=== PATIENT | female | born 1960 | race American Indian/Alaskan Native ===

== ENCOUNTER 2017-09-04 12:23 | Inpatient (IN) | payer BC ==
[2017-09-04] MEDS ORDERED: PROVENTIL IH ONE ×4 (12:29→15:48)
[2017-09-04] MEDS ORDERED: MAGNESIUM SULFATE 2GM/50ML 2 GM/50 ML BAG IV ONE ×2 (12:42→12:43)
[2017-09-04] MEDS ORDERED: ADRENALIN IM ONE (12:43)
[2017-09-04] MEDS ORDERED: NACL 0.9% 1000 ML 1,000 ML IV ONE ×2 (12:43→12:46)
[2017-09-04] MEDS ORDERED: LIDOCAINE VISCOUS 2% PO ONE (12:46)
[2017-09-04] MEDS ORDERED: LIDOCAINE VISCOUS 2% ONE (12:47)
[2017-09-04] MEDS ORDERED: BENADRYL IV ONE (12:48)
[2017-09-04] MEDS ORDERED: GUAIFENESIN DM SYRUP PO ONE (12:49)
[2017-09-04] MEDS ORDERED: PHENERGAN/CODEINE 6.25-10 MG/5ML PO ONE (13:30)
[2017-09-04] MEDS ORDERED: SUBLIMAZE IV ONE ×2 (13:34→18:26)
[2017-09-04] MEDS ORDERED: ATIVAN IV ONE (13:35)
[2017-09-04] MEDS ORDERED: SUBLIMAZE ONE ×2 (13:38→18:45)
[2017-09-04 13:46] LABS: Basophils % (Auto) 0.3 % (0.0-1.8); Eosinophils # (Auto) 0.3 K/mm3 (0.0-0.4); Eosinophils % (Auto) 3.8 % (0.0-4.3); Hematocrit 38.6 % (30.3-42.9); Hemoglobin 13.1 gm/dl (10.1-14.3); Lymphocytes # (Auto) 2.8 K/mm3 (1.2-5.4); Lymphocytes % (Auto) 39.3 % (13.4-35.0); Mean Corpuscular HGB Conc 34 % (30-34); Mean Corpuscular Hemoglobin 27 pg (28-32); Mean Corpuscular Volume 78 fl (79-97); Monocytes # (Auto) 0.7 K/mm3 (0.0-0.8); Monocytes % (Auto) 9.1 % (0.0-7.3); Platelet Count 266 K/mm3 (140-440); Red Blood Count 4.92 M/mm3 (3.65-5.03); Red Cell Distribution Width 14.5 % (13.2-15.2)
[2017-09-04 14:01] LABS: BUN/Creatinine Ratio 15; Blood Urea Nitrogen 9 mg/dL (7-17); Calcium 9.1 mg/dL (8.4-10.2); Hemolysis Index 4
--- NOTE | 2017-09-04 14:28 | XRay Report ---
AP CHEST: HISTORY: chest pain AP view of the chest demonstrates a normal mediastinal and cardiac contour with clear lungs and normal bony and soft tissue structures. Thoracic neurostimulator terminates at T9 level. IMPRESSION: Unremarkable AP chest.
[2017-09-04] MEDS ORDERED: BABY ASPIRIN PO ONE (15:50)
--- NOTE | 2017-09-04 15:50 | Emergency Department Report ---
HPI - General Chief Complaint: Dyspnea/Respdistress Time Seen by Provider: 09/04/17 12:42 - HPI HPI: The patient is a 56-year-old female who presents for evaluation of dyspnea. The patient has a history of severe asthma and previous intubations 5. The patient reports 6 days of cough and waxing and waning dyspnea, worsened and severe since this morning, constant, exacerbated with coughing or exertion, improved with sitting up at rest. She says that she has also experienced a cough and severe generalized myalgias. The patient denies fever, trauma to the chest, syncope, hemoptysis, unilateral leg swelling, recent immobilization, history of DVT or PE, hx of recent cancer. ED Past Medical Hx - Past Medical History Hx Asthma: Yes - Surgical History Additional Surgical History: back, neck, tonsilectomy - Social History Smoking Status: Never Smoker Substance Use Type: None ED Review of Systems ROS: Stated complaint: JOANA Other details as noted in HPI Constitutional: denies: fever ENT: denies: throat or neck pain Respiratory: denies: cough reports shortness of breath Cardiovascular: reports chest pain Endocrine: denies unexplained weight loss or gain Gastrointestinal: denies: abdominal pain, nausea Genitourinary: denies: dysuria Musculoskeletal: denies: leg swelling Skin: denies: rash Neurological: denies: headache Hematological/Lymphatic: denies: easy bleeding or easy bruising Psych: denies sadness or hopelessness Physical Exam - Physical Exam Vital Signs: Vital Signs 09/04/17 09/04/17 09/04/17 12:28 12:34 12:56 Temperature 98.3 F Pulse Rate 78 Pulse Rate [ 94 H 90 Posterior Bilateral Throughout] Respiratory 26 H Rate Respiratory 24 24 Rate [Posterior Bilateral Throughout] Blood Pressure 177/101 O2 Sat by Pulse 97 Oximetry 09/04/17 09/04/17 13:12 13:49 Temperature Pulse Rate Pulse Rate [ 86 Posterior Bilateral Throughout] Respiratory 22 Rate Respiratory 26 H Rate [Posterior Bilateral Throughout] Blood Pressure 144/80 O2 Sat by Pulse Oximetry Physical Exam: General: well-nourished, well-developed, no acute distress Head: Normocephalic, atraumatic Eyes: normal sclera ENT: Mucous membranes are pale and dry Neck: trachea midline, neck supple, No neck stiffness, no cervical adenopathy Respiratory: Diminished breath sounds and wheezing present throughout lung step[place] bilaterally, positive costal retractions, patient in moderate respiratory distress Cardio: S1 and S2 present, no murmurs, rubs, gallops, capillary refill is delayed Abdomen: Normoactive bowel sounds, soft abdomen, no rigidity, no guarding or rebound tenderness Musc: No pitting edema Skin: No rash Neuro: no facial drooping, normal speech Psych: Normal affect ED Course Vital Signs 09/04/17 09/04/17 09/04/17 12:28 12:34 12:56 Temperature 98.3 F Pulse Rate 78 Pulse Rate [ 94 H 90 Posterior Bilateral Throughout] Respiratory 26 H Rate Respiratory 24 24 Rate [Posterior Bilateral Throughout] Blood Pressure 177/101 O2 Sat by Pulse 97 Oximetry 09/04/17 09/04/17 13:12 13:49 Temperature Pulse Rate Pulse Rate [ 86 Posterior Bilateral Throughout] Respiratory 22 Rate Respiratory 26 H Rate [Posterior Bilateral Throughout] Blood Pressure 144/80 O2 Sat by Pulse Oximetry ED Medical Decision Making - Lab Data Result diagrams: 09/04/17 13:29 09/04/17 13:29 - Medical Decision Making The patient was seen and examined by myself. The patient is placed on a cardiac rehabilitation specialist and continuous pulse ox. On initial evaluation, the patient was found to be in respiratory distress. Evaluation orders were placed and the patient was started on continuous albuterol nebulizer. The patient was also given IV Solu-Medrol and IV magnesium for treatment of her severe asthma. The patient was given pain medicine and cough medicine as well. EKG is grossly unremarkable. X-ray of the chest is negative for pneumonia, pleural effusion, pneumothorax, or other signs of emergent disease process. Lab results are grossly not concerning. The patient was reevaluated and found to remain with dyspnea, increased work of breathing, and wheezing throughout lung stephens. Evaluation findings are consistent with status asthmaticus. The patient is given additional breathing treatments and will be admitted to the hospital. The on-call hospitalist service was contacted. They agreed to admit the patient for further treatment and close monitoring. The ED admit order was placed. The patient was admitted in guarded condition. Critical care attestation.: If time is entered above; I have spent that time in minutes in the direct care of this critically ill patient, excluding procedure time. ED Disposition Clinical Impression: Acute severe exacerbation of asthma, Respiratory distress, acute, Myalgia Disposition: OP ADMIT IP TO THIS HOSP Is pt being admited?: Yes Does the pt Need Aspirin: Yes Condition: Fair Referrals: ANJEL MOLINA MD [Primary Care Provider] - 3-5 Days Time of Disposition: 13:31
[2017-09-04] MEDS ORDERED: TESSALON PERLES PO ONE (18:26)
[2017-09-04] MEDS ORDERED: LEVAQUIN PO ONE (18:26)
[2017-09-04] MEDS ORDERED: MUCINEX ER PO ONE (18:27)
[2017-09-04] MEDS ORDERED: SODIUM CHLORIDE FLUSH SYRINGE 10 ML IV PRN (20:09)
[2017-09-04] MEDS ORDERED: MORPHINE IV PRN (20:09)
[2017-09-04] MEDS ORDERED: ZOFRAN IV PRN (20:09)
[2017-09-04] MEDS ORDERED: TYLENOL PO PRN (20:09)
--- NOTE | 2017-09-04 20:09 | History and Physical Report ---
History of Present Illness Date of examination: 09/04/17 Date of admission: 09/04/17 15:47 Chief complaint: Chief complaint: Increasing shortness of breath and wheezing for a few days History of present illness: VIVIANA: 56-year-old female with history of asthma and previous intubations 5 comes in for cough off 6 days duration. Cough or return regarding sputum. Exacerbated by exertion. No fever no chills. Patient has 5 intubations in the past. No recent travel. Patient has severe allergies. Patient feels that the allergies have precipitated the asthma attack. No history of pulmonary embolism or DVT. What was stated in the emergency room recently and discharged. No response to outpatient treatment. No chest pain or palpitations. Past Medical History Hx Asthma: Yes Surgical History Additional Surgical History: back, neck, tonsilectomy -Social History Smoking Status: Never Smoker Substance Use Type: None Family history: Hypertension Review of Systems ROS: Stated complaint: JOANA Other details as noted in HPI Constitutional: denies: fever ENT: denies: throat or neck pain Respiratory: denies: cough reports shortness of breath Cardiovascular: reports chest pain Endocrine: denies unexplained weight loss or gain Gastrointestinal: denies: abdominal pain, nausea Genitourinary: denies: dysuria Musculoskeletal: denies: leg swelling Skin: denies: rash Neurological: denies: headache Hematological/Lymphatic: denies: easy bleeding or easy bruising Psych: denies sadness or hopelessness Medications and Allergies Allergies Allergy/AdvReac Type Severity Reaction Status Date / Time dexamethasone [From Decadron] Allergy Itching Verified 09/04/17 12:28 peanut AdvReac Anaphylaxis Verified 09/04/17 12:28 Exam - Physical Exam Narrative exam: Lying in bed in mild distress - Constitutional Vitals: Temp Pulse Resp BP Pulse Ox 98.3 F 95 H 15 151/76 100 09/04/17 19:21 09/04/17 19:21 09/04/17 19:21 09/04/17 18:30 09/04/17 19:21 General appearance: Present: mild distress, well-nourished - EENT Eyes: Present: PERRL ENT: hearing intact, clear oral mucosa - Neck Neck: Present: supple, normal ROM - Respiratory Respiratory effort: normal Respiratory: bilateral: diminished, rhonchi, wheezing - Cardiovascular Heart rate: 80 Rhythm: regular Heart Sounds: Present: S1 & S2. Absent: rub, click - Extremities Extremities: no ischemia, pulses intact, pulses symmetrical, No edema Peripheral Pulses: within normal limits - Abdominal General gastrointestinal: Present: soft, non-tender, non-distended, normal bowel sounds Female genitourinary: Present: normal - Rectal Rectal Exam: deferred - Integumentary Integumentary: Present: clear, warm, dry - Musculoskeletal Musculoskeletal: gait normal, strength equal bilaterally - Psychiatric Psychiatric: appropriate mood/affect, intact judgment & insight - Neurologic Neurologic: CNII-XII intact, moves all extremities - Allied Health Allied health notes reviewed: nursing, case management Results - Labs CBC & Chem 7: 09/04/17 13:29 09/04/17 13:29 Labs: Laboratory Last Values WBC 7.2 K/mm3 (4.5-11.0) 09/04/17 13:29 RBC 4.92 M/mm3 (3.65-5.03) 09/04/17 13:29 Hgb 13.1 gm/dl (10.1-14.3) 09/04/17 13:29 Hct 38.6 % (30.3-42.9) 09/04/17 13:29 MCV 78 fl (79-97) L 09/04/17 13:29 MCH 27 pg (28-32) L 09/04/17 13:29 MCHC 34 % (30-34) 09/04/17 13:29 RDW 14.5 % (13.2-15.2) 09/04/17 13:29 Plt Count 266 K/mm3 (140-440) 09/04/17 13:29 Lymph % (Auto) 39.3 % (13.4-35.0) H 09/04/17 13:29 [place] % (Auto) 9.1 % (0.0-7.3) H 09/04/17 13:29 Eos % (Auto) 3.8 % (0.0-4.3) 09/04/17 13:29 Baso % (Auto) 0.3 % (0.0-1.8) 09/04/17 13:29 Lymph # 2.8 K/mm3 (1.2-5.4) 09/04/17 13:29 [place] # 0.7 K/mm3 (0.0-0.8) 09/04/17 13:29 Eos # 0.3 K/mm3 (0.0-0.4) 09/04/17 13:29 Baso # 0.0 K/mm3 (0.0-0.1) 09/04/17 13:29 Seg Neutrophils % 47.5 % (40.0-70.0) 09/04/17 13:29 Seg Neutrophils # 3.4 K/mm3 (1.8-7.7) 09/04/17 13:29 POC ABG pH 7.564 (7.35-7.45) H 09/04/17 13:23 POC ABG pCO2 25.4 (35-45) L 09/04/17 13:23 POC ABG pO2 115 (80-105) H 09/04/17 13:23 POC ABG HCO3 22.9 09/04/17 13:23 POC ABG Total CO2 24 09/04/17 13:23 POC ABG O2 Sat 99 09/04/17 13:23 POC ABG Base Excess 1 09/04/17 13:23 FiO2 28 % 09/04/17 13:23 Sodium 142 mmol/L (137-145) 09/04/17 13:29 Potassium 3.5 mmol/L (3.6-5.0) L 09/04/17 13:29 Chloride 104.2 mmol/L (98-107) 09/04/17 13:29 Carbon Dioxide 23 mmol/L (22-30) 09/04/17 13:29 Anion Gap 18 mmol/L 09/04/17 13:29 BUN 9 mg/dL (7-17) 09/04/17 13:29 Creatinine 0.6 mg/dL (0.7-1.2) L 09/04/17 13:29 Estimated GFR > 60 ml/min 09/04/17 13:29 BUN/Creatinine Ratio 15 % 09/04/17 13:29 Glucose 116 mg/dL (65-100) H 09/04/17 13:29 Calcium 9.1 mg/dL (8.4-10.2) 09/04/17 13:29 NT-Pro-B Natriuret Pep 43.22 pg/mL (0-900) 09/04/17 13:29 Short CBC 09/04/17 Range/Units 13:29 WBC 7.2 (4.5-11.0) K/mm3 Hgb 13.1 (10.1-14.3) gm/dl Hct 38.6 (30.3-42.9) % Plt Count 266 (140-440) K/mm3 [facility] 09/04/17 13:29 Sodium 142 Potassium 3.5 L Chloride 104.2 Carbon Dioxide 23 BUN 9 Creatinine 0.6 L Glucose 116 H Calcium 9.1 - Imaging and Cardiology Imaging and Cardiology: Chest x-ray: HISTORY: chest pain AP view of the chest demonstrates a normal mediastinal and cardiac contour with clear lungs and normal bony and soft tissue structures. Thoracic neurostimulator terminates at T9 level. IMPRESSION: Unremarkable AP chest. Assessment and Plan Advance Directives: Yes (full code) VTE prophylaxis?: Chemical Plan of care discussed with patient/family: Yes - Patient Problems (1) Acute respiratory failure Current Visit: Yes Status: Acute Qualifiers: Respiratory failure complication: hypoxia Qualified Code(s): J96.01 - Acute respiratory failure with hypoxia Plan to address problem: Patient severely tachypneic with a respiratory rate of 34. Patient to get Xopenex and DuoNeb's IV Solu-Medrol and IV Levaquin. Patient to be intubated if necessary. (2) Acute severe exacerbation of asthma Current Visit: Yes Status: Acute Plan to address problem: Patient Kirk on Xopenex IV Solu-Medrol and IV Levaquin. Intubation if necessary .Also use BiPAP if necessary. (3) DVT prophylaxis Current Visit: Yes Status: Acute Plan to address problem: Heparin subcutaneously 5000 every 12 GI prophylaxis with famotidine
[2017-09-04] MEDS ORDERED: XOPENEX IH PRN (20:15)
[2017-09-04] MEDS ORDERED: DUONEB *Not for PRN Use IH (20:16)
[2017-09-04] MEDS ORDERED: K-DUR PO ONE (20:33)
[2017-09-04] MEDS ORDERED: K-DUR PO NR (23:00)
[2017-09-04] MEDS ORDERED: BENADRYL IV NR ×2 (23:14→23:45)
[2017-09-04] MEDS: PEPCID PO SCH (23:44)
[2017-09-04] MEDS: HEPARIN SUB-Q SCH (23:47)
[2017-09-04] MEDS: LEVAQUIN 750MG/150ML 750 MG/150 ML BAG IV SCH (23:48)
[2017-09-04] MEDS: D5NS 1,000 ML IV SCH (23:49)
[2017-09-04] MEDS: SODIUM CHLORIDE FLUSH SYRINGE 10 ML IV SCH (23:51)
[2017-09-05] MEDS: PERCOCET 5/325 PO PRN ×3 (00:50→20:18)
[2017-09-05] MEDS: ROBITUSSIN PO PRN ×3 (03:19→20:18)
[2017-09-05] MEDS ORDERED: BENADRYL IV SCH (06:00)
[2017-09-05 06:56] LABS: Hematocrit 36.2 % (30.3-42.9); Hemoglobin 12.1 gm/dl (10.1-14.3); Mean Corpuscular HGB Conc 33 % (30-34); Mean Corpuscular Hemoglobin 26 pg (28-32); Mean Corpuscular Volume 79 fl (79-97); Platelet Count 278 K/mm3 (140-440); Red Blood Count 4.61 M/mm3 (3.65-5.03); Red Cell Distribution Width 14.3 % (13.2-15.2)
[2017-09-05 07:26] LABS: Alanine Aminotransferase 14 units/L (7-56); Albumin 3.9 g/dL (3.9-5); BUN/Creatinine Ratio 17; Blood Urea Nitrogen 10 mg/dL (7-17); Calcium 9.1 mg/dL (8.4-10.2); Hemolysis Index 12
[2017-09-05 08:13] LABS: Band Neutrophils # (Manual) 0.1 K/mm3; Basophils % (Manual) 0 % (0.0-1.8); Eosinophils % (Manual) 0 % (0.0-4.3); RBC Morphology Normal; Total Cells Counted 100
[2017-09-05] MEDS: LEVAQUIN 750MG/150ML 750 MG/150 ML BAG IV SCH (10:02)
[2017-09-05] MEDS: PEPCID PO SCH (10:03)
[2017-09-05] MEDS: HEPARIN SUB-Q SCH ×2 (10:03→21:39)
[2017-09-05] MEDS: SODIUM CHLORIDE FLUSH SYRINGE 10 ML IV SCH ×2 (10:29→23:30)
--- NOTE | 2017-09-05 12:37 | Consultation ---
History of Present Illness Consult date: 09/05/17 Requesting physician: NUSRAT SCHREIBER Reason for consult: dyspnea History of present illness: 56 yo with asthma followed by Dr. Hernandez, admitted w/ increasing SOB, wheezing, cough with yellow sputum. No hemoptysis, fevers, chills. Has chest soreness due to coughing. Has GERD. Has post-nasal drip. Active Medications Acetaminophen (Tylenol) 650 mg PO Q4H PRN PRN Reason: Pain MILD(1-3)/Fever >100.5/TURNER Diphenhydramine HCl (Benadryl) 25 mg IV Q8H KEEGAN Last Admin: 09/05/17 06:49 Dose: 25 mg Fluticasone Propionate (Flonase) 200 mcg NS QDAY KEEGAN Guaifenesin (Robitussin) 200 mg PO Q4H PRN PRN Reason: Cough Last Admin: 09/05/17 10:07 Dose: 200 mg Heparin Sodium (Porcine) (Heparin) 5,000 unit SUB-Q Q12HR KEEGAN Last Admin: 09/05/17 10:03 Dose: 5,000 unit Dextrose/Sodium Chloride (D5ns) 1,000 mls @ 75 mls/hr IV DIRECT KEEGAN Last Admin: 09/04/17 23:49 Dose: 75 mls/hr Levofloxacin/Dextrose (Levaquin 750mg/150ml) 750 mg in 150 mls @ 100 mls/hr IV Q24HR KEEGAN; Protocol Last Admin: 09/05/17 10:02 Dose: 100 mls/hr Levalbuterol HCl (Xopenex) 1.25 mg IH Q8HRT PRN PRN Reason: Shortness Of Breath Methylprednisolone Sodium Succinate (Solu-Medrol) 60 mg IV Q8HR KEEGAN Last Admin: 09/05/17 06:49 Dose: 60 mg Morphine Sulfate (Morphine) 2 mg IV Q4H PRN PRN Reason: Pain, Moderate (4-6) Ondansetron HCl (Zofran) 4 mg IV Q8H PRN PRN Reason: Nausea And Vomiting Last Admin: 09/05/17 05:51 Dose: 4 mg Oxycodone/Acetaminophen (Percocet 5/325) 1 tab PO Q6H PRN PRN Reason: Pain, Moderate (4-6) Last Admin: 09/05/17 10:07 Dose: 1 tab Pantoprazole Sodium (Protonix) 40 mg PO QDAY KEEGAN Sodium Chloride (Sodium Chloride Flush Syringe 10 Ml) 10 ml IV BID KEEGAN Last Admin: 09/04/17 23:51 Dose: 10 ml Sodium Chloride (Sodium Chloride Flush Syringe 10 Ml) 10 ml IV PRN PRN PRN Reason: LINE FLUSH Stop: 09/05/17 20:08 Past History Past Medical History: other (Asthma, GERD, Allergic rhinitis) Social history: lives with family. denies: smoking, alcohol abuse, prescription drug abuse, IV drug use Family history: other (no pulm issues reported) Medications and Allergies Allergies Allergy/AdvReac Type Severity Reaction Status Date / Time dexamethasone [From Decadron] Allergy Itching Verified 09/04/17 12:28 peanut AdvReac Anaphylaxis Verified 09/04/17 12:28 Active Meds: Active Medications Acetaminophen (Tylenol) 650 mg PO Q4H PRN PRN Reason: Pain MILD(1-3)/Fever >100.5/TURNER Diphenhydramine HCl (Benadryl) 25 mg IV Q8H [facility] Last Admin: 09/05/17 06:49 Dose: 25 mg Fluticasone Propionate (Flonase) 200 mcg NS QDAY KEEGAN Guaifenesin (Robitussin) 200 mg PO Q4H PRN PRN Reason: Cough Last Admin: 09/05/17 10:07 Dose: 200 mg Heparin Sodium (Porcine) (Heparin) 5,000 unit SUB-Q Q12HR KEEGAN Last Admin: 09/05/17 10:03 Dose: 5,000 unit Dextrose/Sodium Chloride (D5ns) 1,000 mls @ 75 mls/hr IV DIRECT KEEGAN Last Admin: 09/04/17 23:49 Dose: 75 mls/hr Levofloxacin/Dextrose (Levaquin 750mg/150ml) 750 mg in 150 mls @ 100 mls/hr IV Q24HR [facility]; Protocol Last Admin: 09/05/17 10:02 Dose: 100 mls/hr Levalbuterol HCl (Xopenex) 1.25 mg IH Q8HRT PRN PRN Reason: Shortness Of Breath Methylprednisolone Sodium Succinate (Solu-Medrol) 60 mg IV Q8HR [facility] Last Admin: 09/05/17 06:49 Dose: 60 mg Morphine Sulfate (Morphine) 2 mg IV Q4H PRN PRN Reason: Pain, Moderate (4-6) Ondansetron HCl (Zofran) 4 mg IV Q8H PRN PRN Reason: Nausea And Vomiting Last Admin: 09/05/17 05:51 Dose: 4 mg Oxycodone/Acetaminophen (Percocet 5/325) 1 tab PO Q6H PRN PRN Reason: Pain, Moderate (4-6) Last Admin: 09/05/17 10:07 Dose: 1 tab Pantoprazole Sodium (Protonix) 40 mg PO QDAY KEEGAN Sodium Chloride (Sodium Chloride Flush Syringe 10 Ml) 10 ml IV BID KEEGAN Last Admin: 09/04/17 23:51 Dose: 10 ml Sodium Chloride (Sodium Chloride Flush Syringe 10 Ml) 10 ml IV PRN PRN PRN Reason: LINE FLUSH Stop: 09/05/17 20:08 Review of Systems All systems: negative Physical Examination Vital signs: Vital Signs Temp Pulse Resp BP Pulse Ox 98.3 F 78 26 H 177/101 97 09/04/17 12:28 09/04/17 12:28 09/04/17 12:28 09/04/17 12:28 09/04/17 12:28 General appearance: no acute distress, alert Eyes: non-icteric ENT: oropharynx moist Neck: supple, no lymphadenopathy Effort: normal Ascultation: Bilateral: other (bronchospastic coughing bilaterally) Cardiovascular: regular rate and rhythm (no mrg) Gastrointestinal: normoactive bowel sounds, soft, non-tender, non-distended Integumentary: normal Extremities: no cyanosis, no edema, pink and warm Musculoskeletal: no deformities normal mental status, non-focal exam, pupils equal and round, CN II-XII normal mood appropriate, affect normal Results - Laboratory Findings CBC and BMP: 09/05/17 06:32 09/05/17 06:32 ABG POC ABG pH 7.564 (7.35-7.45) H 09/04/17 13:23 POC ABG pCO2 25.4 (35-45) L 09/04/17 13:23 POC ABG pO2 115 (80-105) H 09/04/17 13:23 POC ABG HCO3 22.9 09/04/17 13:23 POC ABG Total CO2 24 09/04/17 13:23 POC ABG O2 Sat 99 09/04/17 13:23 Abnormal lab findings: Abnormal Labs 09/04/17 09/04/17 09/04/17 13:23 13:29 13:29 MCV 78 L MCH 27 L Lymph % (Auto) 39.3 H [place] % (Auto) 9.1 H Seg Neuts % (Manual) Lymphocytes % (Manual) Lymphocytes # (Manual) POC ABG pH 7.564 H POC ABG pCO2 25.4 L POC ABG pO2 115 H Potassium 3.5 L Creatinine 0.6 L Glucose 116 H 09/05/17 09/05/17 06:32 06:32 MCV MCH 26 L Lymph % (Auto) [place] % (Auto) Seg Neuts % (Manual) 90.0 H Lymphocytes % (Manual) 8.0 L Lymphocytes # (Manual) 0.7 L POC ABG pH POC ABG pCO2 POC ABG pO2 Potassium Creatinine 0.6 L Glucose 131 H - Diagnostic Findings Chest x-ray: report reviewed, image reviewed (clear lungs) Assessment and Plan Imp: 1. Acute bronchitis 2. Asthma exac. 3. Allergic rhinitis/post-nasal drip 4. GERD Rec: 1. Solumedrol, Levaquin 2. Flonase/Benadryl 3. PPI daily 4. Monitor clinical response Plan of care reviewed with patient, she understands/agrees Thanks for the consult. Will follow.
[2017-09-05] MEDS: PROTONIX PO SCH (13:10)
[2017-09-05] MEDS ORDERED: PHENERGAN PO PRN (13:23)
--- NOTE | 2017-09-05 13:25 | Progress Note ---
Assessment and Plan Brief history: Radiological test: Hospitalist Physical exam: GENERAL: well-developed and well-nourished lying on bed appeared to be in no discomfort. HEENT: Normocephalic. Atraumatic. No conjunctival congestion or icterus. Patient has moist mucous membranes. NECK: Supple. Trachea midline. CHEST/LUNGS: Clear to auscultated bilaterally, breathing nonlabored. No wheezes crackles or rhonchi. HEART/CARDIOVASCULAR: Regular in rate and rhythm. S1 and S2 positive. ABDOMEN: Abdomen is soft, nontender. Patient has normal bowel sounds. SKIN: There is no rash. Warm and dry. NEURO: No focal motor deficit. Follows command. MUSCULOSKELETAL: No joint effusion or tenderness. EXTRIMITY: No edema, no cyanosis or clubbing. PSYCH: Cooperative. Subjective Date of service: 09/05/17 Interval history: Patient seen and examined. Medical records and medication list reviewed. No acute event overnight noted by the RN. Patient denies any chest pain or difficulty breathing. Patient is tolerating diet. Discussed plan of care at bedside with patient. Objective - Constitutional Vitals: Vital Signs - 12hr 09/05/17 09/05/17 09/05/17 01:33 04:46 07:41 Temperature 98.4 F 98.5 F Pulse Rate 85 72 Respiratory 18 18 16 Rate Respiratory Rate [Bilateral Soft Tissue] Blood Pressure 129/63 131/73 Blood Pressure [Left] O2 Sat by Pulse 95 97 Oximetry 09/05/17 09/05/17 09/05/17 10:00 10:07 11:53 Temperature 97.5 F L Pulse Rate 75 Respiratory 20 18 18 Rate Respiratory 18 Rate [Bilateral Soft Tissue] Blood Pressure Blood Pressure 144/78 [Left] O2 Sat by Pulse 95 95 Oximetry - Labs CBC & Chem 7: 09/05/17 06:32 09/05/17 06:32 Labs: Abnormal lab results 09/04/17 09/04/17 09/04/17 Range/Units 13:23 13:29 13:29 MCV 78 L (79-97) fl MCH 27 L (28-32) pg Lymph % (Auto) 39.3 H (13.4-35.0) % [place] % (Auto) 9.1 H (0.0-7.3) % Seg Neuts % (Manual) (40.0-70.0) % Lymphocytes % (Manual) (13.4-35.0) % Lymphocytes # (Manual) (1.2-5.4) K/mm3 POC ABG pH 7.564 H (7.35-7.45) POC ABG pCO2 25.4 L (35-45) POC ABG pO2 115 H (80-105) Potassium 3.5 L (3.6-5.0) mmol/L Creatinine 0.6 L (0.7-1.2) mg/dL Glucose 116 H (65-100) mg/dL 09/05/17 09/05/17 Range/Units 06:32 06:32 MCV (79-97) fl MCH 26 L (28-32) pg Lymph % (Auto) (13.4-35.0) % [place] % (Auto) (0.0-7.3) % Seg Neuts % (Manual) 90.0 H (40.0-70.0) % Lymphocytes % (Manual) 8.0 L (13.4-35.0) % Lymphocytes # (Manual) 0.7 L (1.2-5.4) K/mm3 POC ABG pH (7.35-7.45) POC ABG pCO2 (35-45) POC ABG pO2 (80-105) Potassium (3.6-5.0) mmol/L Creatinine 0.6 L (0.7-1.2) mg/dL Glucose 131 H (65-100) mg/dL
--- NOTE | 2017-09-05 15:27 | Progress Note ---
Assessment and Plan / Acute respiratory failure due to asthema exacerbation cont on Xopenex and DuoNeb's IV Solu-Medrol and IV Levaquin and BiPAP as needed /Acute severe exacerbation of asthma Patient started on Xopenex IV Solu-Medrol and IV Levaquin. will use BiPAP if necessary. /Acute bronchitis - cont abx /DVT prophylaxis Heparin subcutaneously 5000 every 12 /GI prophylaxis with famotidine Brief history: 56-year-old female with history of asthma and previous intubations 5 came in for cough for 6 days duration and SOB exacerbated by exertion. Radiological test: CXR - unremarkable Hospitalist Physical exam: GENERAL: well-developed and well-nourished female lying on bed appeared to be in no discomfort. HEENT: Normocephalic. Atraumatic. No conjunctival congestion or icterus. Patient has moist mucous membranes. NECK: Supple. Trachea midline. CHEST/LUNGS: breathing nonlabored.+ wheezes b/l. HEART/CARDIOVASCULAR: Regular in rate and rhythm. S1 and S2 positive. ABDOMEN: Abdomen is soft, nontender. Patient has normal bowel sounds. SKIN: There is no rash. Warm and dry. NEURO: No focal motor deficit. Follows command. MUSCULOSKELETAL: No joint effusion or tenderness. EXTRIMITY: No edema, no cyanosis or clubbing. PSYCH: Cooperative. Subjective Date of service: 09/05/17 Interval history: Patient seen and examined. Medical records and medication list reviewed. No acute event overnight noted by the RN. Patient denies any chest pain but c/o difficulty breathing and cough. Patient is tolerating diet. Discussed plan of care at bedside with patient. Objective - Constitutional Vitals: Vital Signs - 12hr 09/05/17 09/05/17 09/05/17 04:46 07:41 10:00 Temperature 98.4 F 98.5 F Pulse Rate 85 72 Respiratory 18 16 20 Rate Respiratory 18 Rate [Bilateral Soft Tissue] Blood Pressure 129/63 131/73 Blood Pressure [Left] O2 Sat by Pulse 95 97 95 Oximetry 09/05/17 09/05/17 09/05/17 10:07 11:53 14:23 Temperature 97.5 F L Pulse Rate 75 77 Respiratory 18 18 Rate Respiratory Rate [Bilateral Soft Tissue] Blood Pressure 134/71 Blood Pressure 144/78 [Left] O2 Sat by Pulse 95 96 Oximetry 09/05/17 14:28 Temperature 98.2 F Pulse Rate Respiratory 18 Rate Respiratory Rate [Bilateral Soft Tissue] Blood Pressure Blood Pressure [Left] O2 Sat by Pulse 96 Oximetry - Labs CBC & Chem 7: 09/05/17 06:32 09/05/17 06:32 Labs: Abnormal lab results 09/05/17 09/05/17 Range/Units 06:32 06:32 MCH 26 L (28-32) pg Seg Neuts % (Manual) 90.0 H (40.0-70.0) % Lymphocytes % (Manual) 8.0 L (13.4-35.0) % Lymphocytes # (Manual) 0.7 L (1.2-5.4) K/mm3 Creatinine 0.6 L (0.7-1.2) mg/dL Glucose 131 H (65-100) mg/dL
[2017-09-05] MEDS: FLONASE NS SCH (15:48)
[2017-09-05] MEDS: D5NS 1,000 ML IV SCH (18:02)
[2017-09-05] MEDS: MUCINEX ER PO SCH ×2 (18:04→21:38)
[2017-09-05] MEDS: BENADRYL PO PRN (21:38)
[2017-09-06] MEDS: BENADRYL PO PRN (06:03)
[2017-09-06] MEDS: ROBITUSSIN PO PRN (06:07)
[2017-09-06] MEDS: PROTONIX PO SCH (09:58)
[2017-09-06] MEDS: MUCINEX ER PO SCH (09:58)
[2017-09-06] MEDS: FLONASE NS SCH (09:59)
[2017-09-06] MEDS ORDERED: LEVAQUIN PO SCH (10:00)
[2017-09-06] MEDS: HEPARIN SUB-Q SCH (10:10)
--- NOTE | 2017-09-06 10:13 | Progress Note ---
Assessment and Plan Imp: 1. Acute bronchitis 2. Asthma exac. 3. Allergic rhinitis/post-nasal drip 4. GERD Rec: 1. Finish 7 days of Levaquin; recommend Prednisone 40mg x 3 days, 30mg x 3 days , 20mg x 3 days, 10mg x 3 days 2. Flonase/antihistamine 3. PPI daily 4. Cont. Advair 500/50 1 puff BID and needs Rx for rescue inhaler such as Ventolin HFA 5. Can go home pulm-drake and f/u with Dr. Henrandez in 1-2 weeks Plan of care reviewed with patient, she understands/agrees Subjective Date of service: 09/06/17 Principal diagnosis: Cough, Asthma Interval history: No events. Cough, SOB, and wheezing much improved. On RA. Wants to go home. Active Medications Acetaminophen (Tylenol) 650 mg PO Q4H PRN PRN Reason: Pain MILD(1-3)/Fever >100.5/TURNER Diphenhydramine HCl (Benadryl) 25 mg PO Q8H PRN PRN Reason: Itching Last Admin: 09/06/17 06:03 Dose: 25 mg Fluticasone Propionate (Flonase) 100 mcg NS QDAY [facility] Last Admin: 09/06/17 09:59 Dose: 100 mcg Guaifenesin (Robitussin) 200 mg PO Q4H PRN PRN Reason: Cough Last Admin: 09/06/17 06:07 Dose: 200 mg Guaifenesin (Mucinex Er) 600 mg PO BID [facility] Last Admin: 09/06/17 09:58 Dose: 600 mg Heparin Sodium (Porcine) (Heparin) 5,000 unit SUB-Q Q12HR [facility] Last Admin: 09/05/17 21:39 Dose: 5,000 unit Dextrose/Sodium Chloride (D5ns) 1,000 mls @ 75 mls/hr IV DIRECT [facility] Last Admin: 09/05/17 18:02 Dose: 75 mls/hr Levalbuterol HCl (Xopenex) 1.25 mg IH Q8HRT PRN PRN Reason: Shortness Of Breath Levofloxacin (Levaquin) 750 mg PO DAILY [facility] Last Admin: 09/06/17 09:58 Dose: 750 mg Methylprednisolone Sodium Succinate (Solu-Medrol) 60 mg IV Q8HR [facility] Last Admin: 09/06/17 06:03 Dose: 60 mg Morphine Sulfate (Morphine) 2 mg IV Q4H PRN PRN Reason: Pain, Moderate (4-6) Ondansetron HCl (Zofran) 4 mg IV Q8H PRN PRN Reason: Nausea And Vomiting Last Admin: 09/05/17 05:51 Dose: 4 mg Oxycodone/Acetaminophen (Percocet 5/325) 1 tab PO Q6H PRN PRN Reason: Pain, Moderate (4-6) Last Admin: 09/05/17 20:18 Dose: 1 tab Pantoprazole Sodium (Protonix) 40 mg PO QDAY [facility] Last Admin: 09/06/17 09:58 Dose: 40 mg Promethazine HCl (Phenergan) 12.5 mg PO Q6H PRN PRN Reason: Nausea And Vomiting Sodium Chloride (Sodium Chloride Flush Syringe 10 Ml) 10 ml IV BID [facility] Last Admin: 09/05/17 23:30 Dose: 10 ml Objective Vital Signs - 12hr 09/05/17 09/06/17 09/06/17 23:47 04:20 07:05 Temperature 97.7 F 98.3 F 98.2 F Pulse Rate 89 65 64 Respiratory 20 18 15 Rate Blood Pressure 157/102 122/58 126/65 O2 Sat by Pulse 97 97 96 Oximetry Constitutional: no acute distress, alert Eyes: non-icteric ENT: oropharynx moist Neck: supple, no lymphadenopathy Effort: normal Ascultation: Bilateral: clear Cardiovascular: regular rate and rhythm (no mrg) Gastrointestinal: normoactive bowel sounds, soft, non-tender, non-distended Integumentary: normal Extremities: no cyanosis, no edema, pink and warm Neurologic: normal mental status, non-focal exam, pupils equal and round, CN II- XII normal Psychiatric: mood appropriate, affect normal CBC and BMP: 09/05/17 06:32 09/05/17 06:32 ABG, PT/INR, D-dimer: ABG POC ABG pH 7.564 (7.35-7.45) H 09/04/17 13:23 POC ABG pCO2 25.4 (35-45) L 09/04/17 13:23 POC ABG pO2 115 (80-105) H 09/04/17 13:23 POC ABG HCO3 22.9 09/04/17 13:23 POC ABG Total CO2 24 09/04/17 13:23 POC ABG O2 Sat 99 09/04/17 13:23 Abnormal lab findings: Abnormal Labs 09/04/17 09/04/17 09/04/17 13:23 13:29 13:29 MCV 78 L MCH 27 L Lymph % (Auto) 39.3 H [place] % (Auto) 9.1 H Seg Neuts % (Manual) Lymphocytes % (Manual) Lymphocytes # (Manual) POC ABG pH 7.564 H POC ABG pCO2 25.4 L POC ABG pO2 115 H Potassium 3.5 L Creatinine 0.6 L Glucose 116 H 09/05/17 09/05/17 06:32 06:32 MCV MCH 26 L Lymph % (Auto) [place] % (Auto) Seg Neuts % (Manual) 90.0 H Lymphocytes % (Manual) 8.0 L Lymphocytes # (Manual) 0.7 L POC ABG pH POC ABG pCO2 POC ABG pO2 Potassium Creatinine 0.6 L Glucose 131 H Chest x-ray: report reviewed, image reviewed
[2017-09-06] MEDS: SODIUM CHLORIDE FLUSH SYRINGE 10 ML IV SCH (10:15)
--- NOTE | 2017-09-06 14:54 | Discharge Summary ---
Providers - Providers Date of Admission: 09/04/17 15:47 Date of discharge: 09/06/17 Attending physician: YUNG GREGG 09/04/17 Consult to Case Management [CONS] Routine Services Needed at Discharge: Home Health Services Notified:: copy given to 09/04/17 20:35 Consult to Physician [CONS] Routine Comment: Consulting Provider: EDITH JACK Physician Instructions: Reason For Exam: Asthma exac Primary care physician: ANJEL MOLINA Hospitalization Condition: Fair Hospital course: 56-year-old female with history of asthma and previous intubations 5 came in for cough for 6 days duration and SOB exacerbated by exertion. Her chest x-ray on admission was unremarkable. She was admitted for further evaluation and management. She was placed on Zenapax, DuoNeb's breathing treatment, IV Solu- Medrol, and IV Levaquin. BiPAP also ordered as needed, pulmonology was consulted. Her symptom improved significantly with provided care. Mechanical Engineering Director clear patient for discharge and she was discharged home with outpatient follow-up in stable condition. Discharge diagnosis: / Acute respiratory failure due to asthema exacerbation managed with Xopenex and DuoNeb's, IV Solu-Medrol and IV Levaquin and BiPAP as needed /Acute severe exacerbation of asthma symptom resolved with Xopenex IV Solu-Medrol and IV Levaquin. /Acute bronchitis - placed on abx /tachycardia and tachypnia - due to asthma exacerbation, resolved /DVT prophylaxis Heparin subcutaneously given 5000mg every 12h /GI prophylaxis given with famotidine Radiological test: CXR - unremarkable Hospitalist Physical exam: GENERAL: well-developed and well-nourished female lying on bed appeared to be in no discomfort. HEENT: Normocephalic. Atraumatic. No conjunctival congestion or icterus. Patient has moist mucous membranes. NECK: Supple. Trachea midline. CHEST/LUNGS: breathing nonlabored.+ wheezes b/l. HEART/CARDIOVASCULAR: Regular in rate and rhythm. S1 and S2 positive. ABDOMEN: Abdomen is soft, nontender. Patient has normal bowel sounds. SKIN: There is no rash. Warm and dry. NEURO: No focal motor deficit. Follows command. MUSCULOSKELETAL: No joint effusion or tenderness. EXTRIMITY: No edema, no cyanosis or clubbing. PSYCH: Cooperative. Disposition: DC- TO HOME OR SELFCARE Time spent for discharge: 32 minutes Core Measure Documentation - Palliative Care Palliative Care/ Comfort Measures: Not Applicable - Core Measures Any of the following diagnoses?: none Exam - Constitutional Vitals: Temp Pulse Resp BP Pulse Ox 98.2 F 90 18 153/83 97 09/06/17 12:08 09/06/17 12:08 09/06/17 12:08 09/06/17 12:08 09/06/17 12:08 Plan Activity: advance as tolerated Weight Bearing Status: Weight Bear as Tolerated Diet: low fat, low salt Follow up with: ANJEL MOLINA MD [Primary Care Provider] - 3-5 Days Forms: Work/School Release Form Prescriptions: Fluticasone/Salmeterol [Advair 250-50 Diskus] 1 each IH BID 30 Days [facility]dev guaiFENesin ER [Mucinex ER] 600 mg PO BID #14 tablet Levofloxacin [Levaquin TAB] 750 mg PO DAILY #5 tablet oxyCODONE /ACETAMINOPHEN [Percocet 5/325 mg] 1 tab PO Q6H PRN #10 tablet PRN Reason: Pain, Moderate (4-6) predniSONE [Deltasone] 50 mg PO QDAY #5 tab
[2017-09-06 15:40] VITALS: BP 127/83
== END 2017-09-06 18:05 | disposition home or self-care (01) | DRG 189 ==
LOC: ED 12:23 → 3A 15:47
PROVIDERS: ADMIT Internal Medicine; ATTEND Internal Medicine
PROC: 4A033R1 Measurement of Arterial Saturation, Peripheral, Percutaneous Approach (ICD-10-PCS; principal; 2017-09-04)
DX: J96.01 Acute respiratory failure with hypoxia (principal); J44.1 Chronic obstructive pulmonary disease with (acute) exacerbation; J45.901 Unspecified asthma with (acute) exacerbation; J44.0 Chronic obstructive pulmonary disease with (acute) lower respiratory infection; J20.9 Acute bronchitis, unspecified; J30.9 Allergic rhinitis, unspecified; Z88.8 Allergy status to other drugs, medicaments and biological substances; Z91.010 Allergy to peanuts; M79.1 Myalgia; K21.9 Gastro-esophageal reflux disease without esophagitis; R00.0 Tachycardia, unspecified
CPT/HCPCS: 36415; 71045; 80048; 80053; 82803; 83036; 83880; 85007; 85025; 94640; 96365; 96375; J1200; J1644; J1956; J2060; J2405; J2930; J3010; J3475; J7030; J7042

== ENCOUNTER 2018-03-06 11:05 | Emergency (ER) | payer BC ==
[2018-03-06] MEDS ORDERED: DILAUDID IV ONE ×2 (11:11→12:47)
[2018-03-06] MEDS ORDERED: ATIVAN IV ONE (11:14)
[2018-03-06] MEDS ORDERED: ZOFRAN ONE (11:17)
[2018-03-06] MEDS ORDERED: PERCOCET 5/325 PO ONE (11:57)
--- NOTE | 2018-03-06 12:35 | Cat Scan Report ---
CT cervical spine without contrast: Pain. Transverse images are obtained from the skull base through T2. Coronal and sagittal reconstructed images included. The exam is somewhat limited by some streak artifact. There is mild straightening of the cervical spine. No subluxations. The interspace at C2-3 is slightly narrowed and there is anterior spurring. Moderate bilateral foraminal stenoses are present at this level. There is a prosthesis at the C3-4 disc but no stabilizing hardware. There is mild uncal spurring bilaterally at this level with slight narrowing of the foramina. The interspaces between C3 and C5 are virtually absent with bony synostosis of the vertebral bodies. There is a prosthesis at C6-7 stabilized anteriorly with a plate. There is suspicion of diffuse spinal stenosis from C2-3 to C7. On the soft tissue windows there is suspicion of thecal sac compression at these levels. Impressions: Operative and degenerative changes as detailed above. Suspect spinal stenosis and possible cord compression at multiple levels. Recommendation: Consider MR scan.
--- NOTE | 2018-03-06 14:26 | Emergency Department Report ---
ED General Adult HPI - General Chief complaint: Neck Pain/Injury Stated complaint: NECK PAIN Time Seen by Provider: 03/06/18 11:11 Source: patient Mode of arrival: Wheelchair Limitations: No Limitations - History of Present Illness Severity scale (0 -10): 6 - Related Data Previous Rx's Medication Instructions Recorded Last Taken Type Fluticasone/Salmeterol [Advair 1 each IH BID 30 Days blst.w[facility]dev 09/06/17 Unknown Rx 250-50 Diskus] guaiFENesin ER [Mucinex ER] 600 mg PO BID #14 tablet 09/06/17 Unknown Rx levoFLOXacin [Levaquin TAB] 750 mg PO DAILY #5 tablet 09/06/17 Unknown Rx oxyCODONE /ACETAMINOPHEN [Percocet 1 tab PO Q6H PRN #10 tablet 09/06/17 Unknown Rx 5/325 mg] predniSONE [Deltasone] 50 mg PO QDAY #5 tab 09/06/17 Unknown Rx Diazepam [Valium] 5 mg PO Q8H PRN #13 tablet 03/06/18 Unknown Rx traMADol [Ultram 50 MG tab] 50 mg PO Q6HR PRN #13 tablet 03/06/18 Unknown Rx Allergies Allergy/AdvReac Type Severity Reaction Status Date / Time dexamethasone [From Decadron] Allergy Itching Verified 09/04/17 12:28 peanut AdvReac Anaphylaxis Verified 09/04/17 12:28 ED Review of Systems ROS: Stated complaint: NECK PAIN Other details as noted in HPI ED Past Medical Hx - Past Medical History Hx Hypertension: Yes ("stress related" not currently being treated) Hx Diabetes: Yes ("steriod induced") Hx Asthma: Yes - Surgical History Additional Surgical History: back, neck, tonsilectomy - Social History Smoking Status: Never Smoker - Medications Home Medications: Home Medications Medication Instructions Recorded Confirmed Last Taken Type Fluticasone/Salmeterol [Advair 1 each IH BID 30 Days [facility]st.w[facility]dev 09/06/17 Unknown Rx 250-50 Diskus] guaiFENesin ER [Mucinex ER] 600 mg PO BID #14 tablet 09/06/17 Unknown Rx levoFLOXacin [Levaquin TAB] 750 mg PO DAILY #5 tablet 09/06/17 Unknown Rx oxyCODONE /ACETAMINOPHEN [Percocet 1 tab PO Q6H PRN #10 tablet 09/06/17 Unknown Rx 5/325 mg] predniSONE [Deltasone] 50 mg PO QDAY #5 tab 09/06/17 Unknown Rx Diazepam [Valium] 5 mg PO Q8H PRN #13 tablet 03/06/18 Unknown Rx traMADol [Ultram 50 MG tab] 50 mg PO Q6HR PRN #13 tablet 03/06/18 Unknown Rx ED Physical Exam - General Limitations: No Limitations ED Course Vital Signs 03/06/18 03/06/18 11:12 12:27 Temperature 98.2 F Pulse Rate 97 H 87 Respiratory 18 Rate Blood Pressure 166/127 Blood Pressure 187/102 [Right] O2 Sat by Pulse 99 95 Oximetry Critical care attestation.: If time is entered above; I have spent that time in minutes in the direct care of this critically ill patient, excluding procedure time. ED Disposition Clinical Impression: Cervicalgia Disposition: DC-01 TO HOME OR SELFCARE Is pt being admited?: No Does the pt Need Aspirin: No Condition: Stable Instructions: Cervical Sprain (ED) Prescriptions: Diazepam [Valium] 5 mg PO Q8H PRN #13 tablet PRN Reason: Muscle Spasm traMADol [Ultram 50 MG tab] 50 mg PO Q6HR PRN #13 tablet PRN Reason: Pain Referrals: BAKARI PHILLIPS MD [Staff Physician] - 3-5 Days
[2018-03-06 14:56] VITALS: BP 137/89
[2018-03-06] MEDS ORDERED: ZOFRAN IV ONE (18:33)
== END 2018-03-06 14:57 | disposition home or self-care (01) ==
LOC: ED 11:05
DX: M54.2 Cervicalgia (principal); I10 Essential (primary) hypertension; J45.909 Unspecified asthma, uncomplicated; E11.9 Type 2 diabetes mellitus without complications; Z90.89 Acquired absence of other organs; Z91.010 Allergy to peanuts; Z88.1 Allergy status to other antibiotic agents
CPT/HCPCS: 72125; 96374; 96375; 96376; 99283; J1170; J2060; J2405

== ENCOUNTER 2019-02-02 06:21 | Emergency (ER) | payer BC ==
[2019-02-02] MEDS ORDERED: ZOFRAN IV ONE ×2 (06:36→12:32)
[2019-02-02] MEDS ORDERED: NACL 0.9% 1000 ML 1,000 ML IV ONE (06:36)
[2019-02-02] MEDS ORDERED: MORPHINE IV ONE ×2 (06:36→12:25)
--- NOTE | 2019-02-02 06:41 | Emergency Department Report ---
ED Back Pain/Injury HPI - General Chief Complaint: Extremity Problem,Nontraumatic Stated Complaint: BACK/HIP PAIN Time Seen by Provider: 02/02/19 06:32 Source: patient Limitations: No Limitations - History of Present Illness Initial Comments: Patient is a 58-year-old female with history of asthma, back pain and recent diagnosis of kidney stone. Patient presented to the ER c/o severe back pain started last night. Patient rated her pain as 10 out of 10. Patient denied any chest pain or shortness of breath. Patient denied any recent injury or fever. Patient also denied any weakness numbness or tingling sensation. MD Complaint: back pain -: Last night Similar Symptoms Previously: Yes Place: home Radiation: none Severity: severe Severity scale (0 -10): 10 Quality: sharp Consistency: constant - Related Data Previous Rx's Medication Instructions Recorded Last Taken Type Fluticasone/Salmeterol [Advair 1 each IH BID 30 Days blst.w[facility]dev 09/06/17 Unknown Rx 250-50 Diskus] guaiFENesin ER [Mucinex ER] 600 mg PO BID #14 tablet 09/06/17 Unknown Rx levoFLOXacin [Levaquin TAB] 750 mg PO DAILY #5 tablet 09/06/17 Unknown Rx oxyCODONE /ACETAMINOPHEN [Percocet 1 tab PO Q6H PRN #10 tablet 09/06/17 Unknown Rx 5/325 mg] predniSONE [Deltasone] 50 mg PO QDAY #5 tab 09/06/17 Unknown Rx Diazepam [Valium] 5 mg PO Q8H PRN #13 tablet 03/06/18 Unknown Rx traMADol [Ultram 50 MG tab] 50 mg PO Q6HR PRN #13 tablet 03/06/18 Unknown Rx Allergies Allergy/AdvReac Type Severity Reaction Status Date / Time dexamethasone [From Decadron] Allergy Itching Verified 09/04/17 12:28 shellfish derived Allergy Anaphylaxis Verified 02/02/19 09:08 peanut AdvReac Anaphylaxis Verified 09/04/17 12:28 ED Review of Systems ROS: Stated complaint: BACK/HIP PAIN Other details as noted in HPI Comment: All other systems reviewed and negative Constitutional: denies: chills, fever Respiratory: denies: cough, shortness of breath, SOB with exertion, wheezing Cardiovascular: denies: chest pain Gastrointestinal: denies: abdominal pain, nausea, vomiting Musculoskeletal: back pain. denies: joint swelling, arthralgia, myalgia Neurological: denies: headache, weakness, numbness, paresthesias, confusion, abnormal gait ED Past Medical Hx - Past Medical History Previous Medical History?: Yes Hx Hypertension: Yes ("stress related" not currently being treated) Hx Diabetes: Yes ("steriod induced") Hx Asthma: Yes - Surgical History Past Surgical History?: Yes Additional Surgical History: back, neck, tonsilectomy - Social History Smoking Status: Never Smoker Substance Use Type: None - Medications Home Medications: Home Medications Medication Instructions Recorded Confirmed Last Taken Type Fluticasone/Salmeterol [Advair 1 each IH BID 30 Days blst.w[facility]dev 09/06/17 Unknown Rx 250-50 Diskus] guaiFENesin ER [Mucinex ER] 600 mg PO BID #14 tablet 09/06/17 Unknown Rx levoFLOXacin [Levaquin TAB] 750 mg PO DAILY #5 tablet 09/06/17 Unknown Rx oxyCODONE /ACETAMINOPHEN [Percocet 1 tab PO Q6H PRN #10 tablet 09/06/17 Unknown Rx 5/325 mg] predniSONE [Deltasone] 50 mg PO QDAY #5 tab 09/06/17 Unknown Rx Diazepam [Valium] 5 mg PO Q8H PRN #13 tablet 03/06/18 Unknown Rx traMADol [Ultram 50 MG tab] 50 mg PO Q6HR PRN #13 tablet 03/06/18 Unknown Rx ED Physical Exam - General Limitations: No Limitations General appearance: alert, in distress (due to pain) - Head Head exam: Present: atraumatic, normocephalic, normal inspection - Eye Eye exam: Present: normal appearance - ENT ENT exam: Present: normal exam - Neck Neck exam: Present: normal inspection - Respiratory Respiratory exam: Present: normal lung sounds bilaterally - Cardiovascular Cardiovascular Exam: Present: regular rate, normal rhythm, normal heart sounds - GI/Abdominal GI/Abdominal exam: Present: soft, normal bowel sounds. Absent: distended, tenderness, guarding, rebound, rigid - Extremities Exam Extremities exam: Present: normal inspection - Back Exam Back exam: Present: normal inspection - Neurological Exam Neurological exam: Present: alert, oriented X3, CN II-XII intact, normal gait. Absent: motor sensory deficit - Psychiatric Psychiatric exam: Present: normal mood - Skin Skin exam: Present: warm, intact, normal color ED Course Vital Signs 02/02/19 02/02/19 02/02/19 06:24 06:54 07:15 Temperature 97.6 F Pulse Rate 83 77 Respiratory 20 18 24 Rate Blood Pressure 170/105 Blood Pressure 156/80 [Right] O2 Sat by Pulse 98 99 Oximetry 02/02/19 02/02/19 02/02/19 07:19 08:30 08:35 Temperature 98.1 F Pulse Rate 73 Respiratory 18 22 22 Rate Blood Pressure Blood Pressure 132/91 [Right] O2 Sat by Pulse 96 Oximetry 02/02/19 10:04 Temperature Pulse Rate 71 Respiratory 16 Rate Blood Pressure Blood Pressure 152/71 [Right] O2 Sat by Pulse 96 Oximetry ED Medical Decision Making - Lab Data Result diagrams: 02/02/19 06:59 02/02/19 06:59 - Radiology Data Radiology results: report reviewed Referring Physician: ASHLIE HORNE Patient Name: THUY KIRK Date of : 1960 Sex: Female Report Date: 2019-02-02 Report Status: Finalized Findings [facility] [address] [place] [address] Cat Scan Report Signed Patient: THUY KIRK MR#: [id number] : 1960 Acct:[id number] Age/Sex: 58 / F ADM Date: 02/02/19 Loc: ED Attending Dr: Ordering Physician: ASHLIE HORNE Date of Service: 02/02/19 Procedure(s): CT abdomen pelvis wo con Accession Number(s): [id number] cc: ASHLIE HORNE CT abdomen pelvis wo con INDICATION: Abdominal Pain/ back pain. TECHNIQUE: All CT scans at this location are performed using the following dose modulation technique: Automated exposure control. Helical slices were obtained through the abdomen and pelvis. No contrast is administered. COMPARISON: None available. FINDINGS: Abdomen: There is mild subsegmental atelectasis in the lung bases. The liver, spleen, pancreas, adrenal glands, and left kidney are unremarkable. There is a small hyperdense cyst arising from the lower pole of the right kidney. There is no adenopathy. There is no obstruction, inflammation, or free air. There is a moderate amount stool in colon Pelvis: The appendix is unremarkable. There are phleboliths in the pelvis. There is no inflammatory change. Sigmoid diverticula are noted. There is no CT evidence of diverticulitis. On review of bone windows, postoperative changes are noted in the lower lumbar spine. Spinal stimulation lead is noted in the lower thoracic spinal canal. IMPRESSION: 1. There is no obstruction, inflammation, or free air. 2. There is possible constipation. 3. No renal or ureteral calculi are seen. 4. Postoperative changes are noted in the lower lumbar spine. Signer Name: Gomez Solorzano MD Signed: 02/02/2019 7:28 AM Workstation Name: [id number] Transcribed By: SS Dictated By: Gomez Solorznao MD Electronically Authenticated By: Gomez Solorzano MD Signed Date/Time: 02/02/19727 DD/ 6 TD/TT: Referring Physician: ASHLIE HORNE Patient Name: THUY KIRK Date of : 1960 Sex: Female Report Date: 2019-02-02 Report Status: Finalized Findings [facility] [address] [place] [address] Cat Scan Report Signed Patient: THUY KIRK MR#: [id number] : 1960 Acct:[id number] Age/Sex: 58 / F ADM Date: 02/02/19 Loc: ED Attending Dr: Ordering Physician: ASHLIE HORNE Date of Service: 02/02/19 Procedure(s): CT lumbar spine w con Accession Number(s): [id number] cc: ASHLIE HORNE CT lumbar spine without contrast INDICATION: Severe low back pain since Monday. TECHNIQUE: Axial imaging performed through the lumbar spine without the use of contrast. Sagittal and coronal reconstructed images were also reviewed. All CT scans at this location are performed using CT dose reduction for ALARA by means of automated exposure control. COMPARISON: None FINDINGS: Alignment: There is fixed grade 1 anterolisthesis of L5 on S1 where there is also posterior laminectomy change and the posterior construct. No hardware complication. Bones: There is no acute osseous abnormality. Mild multilevel discogenic DJD is present. There is also mild lower lumbar facet arthropathy and mild DJD in the SI joints. Soft tissues: No acute or significant incidental soft tissue abnormality. IMPRESSION: No acute abnormality. Degenerative and postoperative findings as above. Signer Name: Maykel Dyer MD Signed: 02/02/2019 11:53 AM Workstation Name: [id number] Transcribed By: OLAF Dictated By: Maykel Dyer MD Electronically Authenticated By: Maykel Dyer MD Signed Date/Time: 02/02/19 1153 DD/ 1151 TD/TT: - Medical Decision Making Patient is a 58-year-old female with history of asthma, back pain and recent diagnosis of kidney stone. Patient presented to the ER c/o severe back pain started last night. Patient rated her pain as 10 out of 10. Patient denied any chest pain or shortness of breath. Patient denied any recent injury or fever. Patient also denied any weakness numbness or tingling sensation. Patient received multiple doses of pain medicine including morphine, Toradol and Dilaudid. Patient stated that her pain subsided but not completely went away. Labs reviewed and is unremarkable. CT abdomen and pelvis is negative for acute finding. CT lumbar spine with IV contrast is negative for acute changes. Patient denied any weakness, numbness or tingling sensation. No bowel or bladder incontinence. Patient advised to follow-up with her neurologist in the next 2-3 days and to return to the ER if symptoms are not improved. Critical care attestation.: If time is entered above; I have spent that time in minutes in the direct care of this critically ill patient, excluding procedure time. ED Disposition Clinical Impression: Acute back pain Disposition: DC-01 TO HOME OR SELFCARE Is pt being admited?: No Condition: Stable Instructions: Acute Low Back Pain (ED), Lumbar Radiculopathy (ED) Referrals: PRIMARY CARE, [Primary Care Provider] - 3-5 Days
[2019-02-02] MEDS ORDERED: TORADOL IV ONE ×2 (07:02→07:03)
[2019-02-02] MEDS ORDERED: DILAUDID IV ONE ×3 (07:02→08:22)
--- NOTE | 2019-02-02 07:32 | Cat Scan Report ---
CT abdomen pelvis wo con INDICATION: Abdominal Pain/ back pain. TECHNIQUE: All CT scans at this location are performed using the following dose modulation technique: Automated exposure control. Helical slices were obtained through the abdomen and pelvis. No contrast is adminis tered. COMPARISON: None available. FINDINGS: Abdomen: There is mild subsegmental atelectasis in the lung bases. The liver, spleen, pancreas, adrenal glands, and left kidney are unremarkable. There is a small hyper dense cyst arising from the lower pole of the right kidney. There is no adenopathy. There is no obstruction, inflammation, or free air. There is a moderate amount stool in colon Pelvis: The appendix is unremarkable. There are phleboliths in the pelvis. There is no inflammatory c hange. Sigmoid diverticula are noted. There is no CT evidence of diverticulitis. On review of bone windows, postoperative changes are noted in the lower lumbar spine. Spinal stimula tion lead is noted in the lower thoracic spinal canal. IMPRESSION: 1. There is no obstruction, inflammation, or free air. 2. There is possible constipation. 3. No renal or ureteral calculi are seen. 4. Postoperative changes are noted in the lower lumbar spine. Signer Name: Gomez Solorzano MD Signed: 02/02/2019 7:28 AM Workstation Name: [id number]
[2019-02-02 07:38] LABS: Basophils % (Auto) 0.4 % (0.0-1.8); Eosinophils # (Auto) 0.1 K/mm3 (0.0-0.4); Eosinophils % (Auto) 1.3 % (0.0-4.3); Hematocrit 36.9 % (30.3-42.9); Hemoglobin 12.2 gm/dl (10.1-14.3); Lymphocytes # (Auto) 1.8 K/mm3 (1.2-5.4); Lymphocytes % (Auto) 23.8 % (13.4-35.0); Mean Corpuscular HGB Conc 33 % (30-34); Mean Corpuscular Volume 79 fl (79-97); Monocytes # (Auto) 0.7 K/mm3 (0.0-0.8); Monocytes % (Auto) 9.2 % (0.0-7.3); Platelet Count 287 K/mm3 (140-440); Red Blood Count 4.66 M/mm3 (3.65-5.03); Red Cell Distribution Width 14.1 % (13.2-15.2)
[2019-02-02 07:57] LABS: Alanine Aminotransferase 15 units/L (7-56); Albumin 4.2 g/dL (3.9-5); BUN/Creatinine Ratio 19; Blood Urea Nitrogen 13 mg/dL (7-17); Calcium 9.5 mg/dL (8.4-10.2); Hemolysis Index 2
[2019-02-02 08:12] LABS: Bilirubin,Direct < 0.2 mg/dL (0-0.2)
[2019-02-02 10:04] VITALS: BP 152/71
[2019-02-02] MEDS ORDERED: SOLU-Medrol IV ONE (10:45)
--- NOTE | 2019-02-02 11:57 | Cat Scan Report ---
CT lumbar spine without contrast INDICATION: Severe low back pain since Monday. TECHNIQUE: Axial imaging performed through the lumbar spine without the use of contrast. Sagittal a nd coronal reconstructed images were also reviewed. All CT scans at this location are performed usin g CT dose reduction for ALARA by means of automated exposure control. COMPARISON: None FINDINGS: Alignment: There is fixed grade 1 anterolisthesis of L5 on S1 where there is also posterior laminect preet change and the posterior construct. No hardware complication. Bones: There is no acute osseous abnormality. Mild multilevel discogenic DJD is present. There is also mild lower lumbar facet arthropathy and mild DJD in the SI joints. Soft tissues: No acute or significant incidental soft tissue abnormality. IMPRESSION: No acute abnormality. Degenerative and postoperative findings as above. Signer Name: Maykel Dyer MD Signed: 02/02/2019 11:53 AM Workstation Name: [id number]
[2019-02-02 12:48] LABS: Bacteria,Urine 1+ /HPF (Negative); Bilirubin,Urine NEG (Negative); Blood,Urine SM (Negative); Color,Urine Straw (Yellow); Protein,Urine <15 mg/dL mg/dL (Negative); Urobilinogen,Urine < 2.0 mg/dL (<2.0)
== END 2019-02-02 14:19 | disposition home or self-care (01) ==
LOC: ED 06:21
DX: M54.9 Dorsalgia, unspecified (principal); J45.909 Unspecified asthma, uncomplicated; Z87.442 Personal history of urinary calculi; I10 Essential (primary) hypertension; E11.9 Type 2 diabetes mellitus without complications; Z88.8 Allergy status to other drugs, medicaments and biological substances; Z91.010 Allergy to peanuts; Z91.013 Allergy to seafood; Z79.899 Other long term (current) drug therapy
CPT/HCPCS: 36415; 72132; 74176; 80048; 80076; 81001; 83690; 85025; 96374; 96375; 96376; 99284; J1170; J1885; J2270; J2405; J2930; J7030; Q9967